=== PATIENT | male | born 1950 | race Hispanic/Latino ===

== ENCOUNTER → 2022-06-04 | Outpatient (CLI) | payer OTHER, MEDICARE ==
[~2022-06-04] MED LIST: LOSA100T58 PO; NAPR-1180 PO
== END | disposition home or self-care (01) ==
LOC: RAH 07:43
PROVIDERS: ATTEND Family Medicine
DX: K76.0 Fatty (change of) liver, not elsewhere classified (principal); R10.31 Right lower quadrant pain
CPT/HCPCS: 76700